=== PATIENT | male | born 1950 | race Caucasian/White ===

== ENCOUNTER → 2017-06-10 | Outpatient (CLI) | payer MEDICARE, OTHER ==
--- NOTE | 2017-06-11 11:38 | RADIOLOGY REPORT (SQ) ---
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 RADIONUCLIDE AND DOSE: 289 microcuries I-123. Administered orally by capsule ADDITIONAL DRUGS AND DOSES: None. TECHNIQUE: Iodine uptake was measured at 4 and 24 hours. Images of the neck were acquired. LIMITATIONS: None. FINDINGS: 4 HOUR UPTAKE RADIO-IODINE: 10%. Normal Range of 5-15% [facility] 24 HOUR UPTAKE RADIO-IODINE: 24%. Normal Range of 15-30% [facility] SCAN: Homogeneous uptake of the radionuclide throughout both lobes of the gland and isthmus without a reas of increased or decreased activity. Normal size. OTHER: No other significant finding. IMPRESSION: NORMAL RADIONUCLIDE SCAN OF THYROID GLAND. NORMAL UPTAKE OF IODINE. TECHNICAL DOCUMENTATION: JOB ID: [id number] [employer]- All Rights Reserved
== END ==
LOC: RAD 09:19
PROVIDERS: ATTEND Internal Medicine Endocrinology, Diabetes & Metabolism
DX: E05.90 Thyrotoxicosis, unspecified without thyrotoxic crisis or storm (principal)
CPT/HCPCS: 78014; A9516